=== PATIENT | female | born 1950 | race Caucasian/White ===

== ENCOUNTER 2021-06-20 11:54 | Observation (INO) | payer MEDICARE ==
[~2021-06-20] VITALS: Ht 152.4 cm; Wt 64.9 kg
[2021-06-20 12:11] VITALS: BP 104/47
--- NOTE | 2021-06-20 13:07 | NUR ---
70/F BIBA from [facility] to ED with c/o epistaxis. Per EMS [place] continued and worsened with no relief. Patient states she has had history of chronic nosebleeds since the beginning of the year, stating she has been following up with an ENT. Patient states she began feeling weak and states she sat on the ground and lost consciousness, denies injury, trauma or hitting her head. Patient denies any dizziness or blurred vision. Denies chest pain or shortness of breath, states upon arrival to ED she "feels better."
[2021-06-20 13:38] LABS: BASOPHILS # (AUTO) 0.1 K/uL (0.00-0.22); BASOPHILS % (AUTO) 0.4 % (0.0-2.0); EOSINOPHILS % (AUTO) 0.2 % (0.0-4.0); HEMATOCRIT 24.9 % (36-48); HEMOGLOBIN 7.9 g/dL (12.0-16.0); LYMPHOCYTES # (AUTO) 2.1 K/uL (2.5-16.5); LYMPHOCYTES % (AUTO) 9.2 % (20.5-51.1); MEAN CORPUSCULAR HEMOGLOBIN 31 pg (27-31); MEAN CORPUSCULAR HGB CONC 32 g/dL (33-37); MEAN CORPUSCULAR VOLUME 97.1 fL (80-94); MONOCYTES # (AUTO) 0.9 K/uL (0.8-1.0); NEUTROPHILS # (AUTO) 19.8 K/uL (1.8-7.7); NEUTROPHILS % (AUTO) 86.2 % (42.2-75.2); PLATELET COUNT (AUTO) 321 K/uL (140-450); RED BLOOD CELL COUNT(AUTO) 2.56 MIL/uL (4.20-5.40); RED CELL DISTRIBUTION WIDTH 15.9 % (11.6-13.7)
[2021-06-20] MEDS ORDERED: NACL 0.9% 1,000 ML IV ONE (13:55)
--- NOTE | 2021-06-20 13:55 | NUR ---
PT WAS ASSISTED TO BATHROOM, PT WAS UNABLE TO WALK BACK INTO BED, BP DROPPED DOWN TO 78/29. VERBAL ORDER FOR FLUID BOLUS 1000ML GIVEN.
--- NOTE | 2021-06-20 14:10 | NUR ---
PATIENT APPEARS TO BE RESTING, PROVIDED WITH BLANKETS. STATES SHE "FEELS BETTER" AFTER LYING BACK DOWN.
[2021-06-20 14:29] LABS: ALBUMIN 2.8 g/dL (3.4-5.0); ANION GAP 14.7 (8-16); CARBON DIOXIDE 23.4 mmol/L (21-32); CREATININE 0.8 mg/dL (0.6-1.3); POTASSIUM 4.1 mmol/L (3.5-5.1); TOTAL BILIRUBIN 0.1 mg/dL (0.0-1.0)
--- NOTE | 2021-06-20 16:00 | NUR ---
Patient resting in bed with eyes closed, provided warm blankets. Patient on bedside paratransit operator, all needs met at this time.
--- NOTE | 2021-06-20 17:30 | NUR ---
Attempted to call patients Ed Shamar , no answer. Voicemail left.
[2021-06-20] MEDS ORDERED: MAG SULF 2000 MG/WATER PREMIX 50 ML IV PRN (18:05)
[2021-06-20] MEDS ORDERED: HYDROcodone/APAP 5/325 MG 1 TAB TAB PO PRN (18:05)
[2021-06-20] MEDS ORDERED: ONDANSETRON 4 MG/2 ML VIAL IVP PRN (18:05)
[2021-06-20] MEDS ORDERED: ACETAMINOPHEN 325 MG TAB PO PRN (18:05)
[2021-06-20] MEDS ORDERED: MAGNESIUM OXIDE 400 MG TAB PO PRN (18:05)
[2021-06-20] MEDS ORDERED: MORPHINE SULFATE 4 MG/ML SYR IVP PRN (18:05)
[2021-06-20] MEDS ORDERED: KCL 20 MEQ/WATER INJ PREMIX 200 ML IV PRN (18:05)
[2021-06-20] MEDS ORDERED: POTASSIUM CHLORIDE 10 MEQ TABER PO PRN (18:05)
--- NOTE | 2021-06-20 18:32 | NUR ---
Spoke with patients daughter Lizeth Soto and given update on patient.
[2021-06-20] MEDS: NACL 0.9% 1,000 ML IV SCH (18:55)
--- NOTE | 2021-06-20 19:37 | NUR ---
Pt report given to Hussein JESSICA. Transfer of care at this time.
--- NOTE | 2021-06-20 19:38 | NUR ---
RECEIVED REPORT FROM ASPEN JESSICA FOR CONTINUITY OF CARE
--- NOTE | 2021-06-20 21:59 | NUR ---
URINE SAMPLE COLLECTED AND SENT TO LAB
--- NOTE | 2021-06-21 00:19 | NUR ---
VS STABLE. PT RESTING IN BED. NO S/SX OF DISTRESS NOTED. PT KEPT COMFORTABLE. CALL LIGHT WITHIN REACH. WILL CONTINUE TO MONITOR.
--- NOTE | 2021-06-21 02:33 | NUR ---
ASLEEP. VISIBLE CHEST RISE AND FALL NOTED. PT NOT IN DISTRESS. SAFETY MEASURES IN PLACE. WILL CONTINUE TO MONITOR.
--- NOTE | 2021-06-21 04:39 | NUR ---
PT ASSISTED IN USING BEDSIDE COMMODE SAFELY. PT TOLERATED WELL.
[2021-06-21] MEDS: NACL 0.9% 1,000 ML IV SCH ×2 (06:30→19:05)
--- NOTE | 2021-06-21 07:15 | NUR ---
endorsed to day shift nurse for continuity of care
--- NOTE | 2021-06-21 07:17 | NUR ---
report received from ARACELY stahl. transfer of care received for continuity of care
--- NOTE | 2021-06-21 07:38 | NUR ---
REPORT RECEIVED FROM ED NURSE.
--- NOTE | 2021-06-21 07:44 | NUR ---
Patient will be admitted to care of DR. STEWART. Admited to [facility]. Will go to room 105B. Belongings list completed. Report to ARACELY YOU.
--- NOTE | 2021-06-21 07:52 | NUR ---
PT ARRIVED ON UNIT . PT ORIENTED TO HOSPITAL RULES REGULATIONS AND POLICIES. PT VERBALIZED UNDERSTANDING. PT ORIENTED TO ROOM AND BED CONTROLS. ALL SAFETY MEASURES ARE IN PLACE.
[2021-06-21 08:00] VITALS: BP 90/77
[2021-06-21] MEDS ORDERED: DOCUSATE SODIUM 100 MG GELCAP PO SCH (09:00)
--- NOTE | 2021-06-21 09:38 | NUR ---
PATIENT HAS BEEN SCREENED AND CATEGORIZED LOW NUTRITION RISK. PATIENT WILL BE SEEN WITHIN 7 DAYS OF ADMISSION. 06/27/[address]
--- NOTE | 2021-06-21 09:42 | NUR ---
PT COMPLAINS OF HEAD ACHE. PRN MEDICATION GIVEN .PT PREFERRED PARTIAL DOSE OF TYLENOL PT EDUCATED VERBALIZED UNDERSTANDING.
[2021-06-21 11:03] LABS: BASOPHILS # (AUTO) 0.1 K/uL (0.00-0.22); BASOPHILS % (AUTO) 0.4 % (0.0-2.0); EOSINOPHILS % (AUTO) 0.2 % (0.0-4.0); LYMPHOCYTES # (AUTO) 3.8 K/uL (2.5-16.5); MEAN CORPUSCULAR HEMOGLOBIN 32 pg (27-31); MEAN CORPUSCULAR HGB CONC 33 g/dL (33-37); MEAN CORPUSCULAR VOLUME 96.7 fL (80-94); MONOCYTES # (AUTO) 0.7 K/uL (0.8-1.0); MONOCYTES % (AUTO) 4.7 % (1.7-9.3); NEUTROPHILS # (AUTO) 9.5 K/uL (1.8-7.7); NEUTROPHILS % (AUTO) 67.7 % (42.2-75.2); PLATELET COUNT (AUTO) 264 K/uL (140-450); RED BLOOD CELL COUNT(AUTO) 1.82 MIL/uL (4.20-5.40); RED CELL DISTRIBUTION WIDTH 16.1 % (11.6-13.7)
[2021-06-21 11:17] LABS: CHOL/HDL RATIO 3.5 (1-4.5); MAGNESIUM 1.8 mg/dL (1.8-2.4)
[2021-06-21 11:24] LABS: HEMATOCRIT 17.6 % (36-48); HEMOGLOBIN 5.8 g/dL (12.0-16.0)
--- NOTE | 2021-06-21 11:24 | NUR ---
CRITICAL VALUES RECEIVED : HGB 5.8 , HCT 17.6 MD AWARE. ORDER RECEIVED AND WILL BE CARRIED THROUGH
[2021-06-21 11:29] LABS: ALBUMIN 2.7 g/dL (3.4-5.0); ANION GAP 8.1 (8-16); CREATININE 0.8 mg/dL (0.6-1.3); POTASSIUM 4.1 mmol/L (3.5-5.1); TOTAL BILIRUBIN 0.2 mg/dL (0.0-1.0)
--- NOTE | 2021-06-21 13:10 | NUR ---
PATIENT AMBULATING TO RESTROOM DENIES SOB, DIZZINESS OR LIGHT HEADEDNESS. ALL SAFETY MEASURES IN PLACE
--- NOTE | 2021-06-21 14:45 | NUR ---
MD AT BEDSIDE, BLOOD CONSENT OBTAINED. PATIENT HAS NO QUESTIONS AT THIS TIME. ALL SAFETY MEASURES IN PLACE.
--- NOTE | 2021-06-21 15:20 | NUR ---
PRBC'S DOUBLE VERIFIED WITH [employer] MUSIC DIRECTOR.
--- NOTE | 2021-06-21 15:25 | NUR ---
BLOOD VERIFIED WITH ANOTHER RN, ALL SAFETY MEASURES ARE IN PLACE.
--- NOTE | 2021-06-21 15:30 | NUR ---
BLOOD TRANSFUSION STARTED
--- NOTE | 2021-06-21 15:35 | NUR ---
PT DENIES SOB, ITCHINESS, OR PAIN. PT BREATHING IS SYMMETRICAL AND UNLABORED , NO S/SX OF DISTRESS AT THIS TIME.
--- NOTE | 2021-06-21 15:44 | NUR ---
PT REASSESSED, PT RESTING IN BED TALKING TO FRIEND T BEDSIDE , NO S/SX OF DISTRESS AT THIS TIME . ALL SAFETY MEASURES ARE IN PLACE.
--- NOTE | 2021-06-21 15:45 | NUR ---
VS: 99/60 HR 93, O2% 100 99.0 TEMP
--- NOTE | 2021-06-21 15:53 | NUR ---
PER MD IF REPEAT CBC HGB IS ABOVE 8 SHE CAN GO HOME TONIGHT
[2021-06-21 16:00] VITALS: BP 100/56
--- NOTE | 2021-06-21 17:00 | NUR ---
PT RESTING IN BED ICE CHIPS PROVIDED. PT GIVEN WATER
--- NOTE | 2021-06-21 18:45 | NUR ---
PT BLOOD TRANSFUSION COMPLETE. PT DENIES ANY ADVERSE EFFECTS. ALL SAFETY MEASURES ARE IN PLACE.
--- NOTE | 2021-06-21 19:00 | NUR ---
BLOOD TRANSFUSION STARTED. PT EDUCATED PT VERBALIZED UNDERSTANDING.
[2021-06-21 22:26] VITALS: BP 99/56
[2021-06-22 01:03] LABS: BASOPHILS # (AUTO) 0.1 K/uL (0.00-0.22); BASOPHILS % (AUTO) 0.5 % (0.0-2.0); EOSINOPHILS # (AUTO) 0.1 K/uL (0-0.4); EOSINOPHILS % (AUTO) 0.4 % (0.0-4.0); HEMATOCRIT 26.4 % (36-48); HEMOGLOBIN 8.8 g/dL (12.0-16.0); LYMPHOCYTES # (AUTO) 3.6 K/uL (2.5-16.5); LYMPHOCYTES % (AUTO) 25.7 % (20.5-51.1); MEAN CORPUSCULAR HEMOGLOBIN 33 pg (27-31); MEAN CORPUSCULAR HGB CONC 33 g/dL (33-37); MEAN CORPUSCULAR VOLUME 99.1 fL (80-94); MONOCYTES # (AUTO) 0.8 K/uL (0.8-1.0); MONOCYTES % (AUTO) 5.5 % (1.7-9.3); NEUTROPHILS # (AUTO) 9.6 K/uL (1.8-7.7); NEUTROPHILS % (AUTO) 67.9 % (42.2-75.2); PLATELET COUNT (AUTO) 222 K/uL (140-450); RED BLOOD CELL COUNT(AUTO) 2.66 MIL/uL (4.20-5.40); RED CELL DISTRIBUTION WIDTH 15.8 % (11.6-13.7); WHITE BLOOD COUNT (AUTO) 14.1 K/uL (4.8-10.8)
--- NOTE | 2021-06-22 07:27 | NUR ---
DC PAPER SIGNED, ALL QUESTIONS ANSWERED, PT STATED UNDERSTANDING.
[2021-06-22 07:31] LABS: BASOPHILS # (AUTO) 0.1 K/uL (0.00-0.22); BASOPHILS % (AUTO) 0.7 % (0.0-2.0); EOSINOPHILS # (AUTO) 0.1 K/uL (0-0.4); EOSINOPHILS % (AUTO) 0.6 % (0.0-4.0); HEMATOCRIT 26.3 % (36-48); HEMOGLOBIN 8.9 g/dL (12.0-16.0); LYMPHOCYTES # (AUTO) 3.8 K/uL (2.5-16.5); LYMPHOCYTES % (AUTO) 25.5 % (20.5-51.1); MEAN CORPUSCULAR HEMOGLOBIN 34 pg (27-31); MEAN CORPUSCULAR HGB CONC 34 g/dL (33-37); MEAN CORPUSCULAR VOLUME 99.5 fL (80-94); MONOCYTES # (AUTO) 0.7 K/uL (0.8-1.0); MONOCYTES % (AUTO) 4.9 % (1.7-9.3); NEUTROPHILS # (AUTO) 10.1 K/uL (1.8-7.7); NEUTROPHILS % (AUTO) 68.3 % (42.2-75.2); PLATELET COUNT (AUTO) 195 K/uL (140-450); RED BLOOD CELL COUNT(AUTO) 2.65 MIL/uL (4.20-5.40); RED CELL DISTRIBUTION WIDTH 16.2 % (11.6-13.7); WHITE BLOOD COUNT (AUTO) 14.7 K/uL (4.8-10.8)
--- NOTE | 2021-06-22 07:50 | NUR ---
PT LEFT UNIT IN STABLE CONDITION, BOTH IV TAKEN OUT CATH INTACT, WRISTBAND TAKEN OFF. PICKED UP BY IN LOBBY.
[2021-06-22 08:39] LABS: ALBUMIN 2.8 g/dL (3.4-5.0); ANION GAP 12.9 (8-16); CARBON DIOXIDE 22.9 mmol/L (21-32); CREATININE 0.7 mg/dL (0.6-1.3); POTASSIUM 3.8 mmol/L (3.5-5.1); TOTAL BILIRUBIN 0.4 mg/dL (0.0-1.0)
--- NOTE | 2021-06-25 12:24 | NUR ---
LATE ENTRY: IVF NACL DISCONTINUED AT 0740 WHEN PT MOVED TO THE FLOOR.
== END 2021-06-22 08:00 | disposition home or self-care (01) ==
LOC: MED 11:54 → MMU 18:12 → MTU 06-21 06:44
PROVIDERS: ADMIT Hospitalist; ATTEND Hospitalist
DX: R04.0 Epistaxis (principal); D62 Acute posthemorrhagic anemia; R42 Dizziness and giddiness; R55 Syncope and collapse; I95.9 Hypotension, unspecified; Z79.899 Other long term (current) drug therapy
CPT/HCPCS: 36415; 36430; 71045; 80053; 80061; 83036; 83735; 83880; 84484; 85025; 85730; 86886; 86900; 86901; 86920; 87081; 93005; 96360; 96361; 99291; G0378; P9016